=== PATIENT | female | born 1950 | race Caucasian/White ===

== ENCOUNTER 2018-10-31 07:51 | Emergency (ER) | payer OTHER, MEDICAID ==
[2018-10-31 07:59] VITALS: BP 149/83
[2018-10-31] MEDS ORDERED: predniSONE 20 MG TAB PO ONE (08:36)
--- NOTE | 2018-10-31 08:39 | EDPHY ---
H & P Stated Complaint: Swelling and redness to left pointer finger since yesterday. Time Seen by Provider: 10/31/18 08:26 HPI/ROS: CHIEF COMPLAINT: Insect bite HISTORY OF PRESENT ILLNESS: The patient is a 68-year-old female who states that she went to bed was and woke up Wednesday morning with 2 insect bites. 1 on her left arm and 1 on her left index finger. Since then they have been very itchy and swelling. She states that this is somewhat common for her and that she often gets insect bites and has local allergic reactions. In the past she has been is prescribed Vistaril but does not like how it makes her so sleepy. She has been using Benadryl cream with minimal improvement. She has been using ice. She is here requesting stronger but nonsedating anti- inflammatories. Severity: Moderate Modifying factors: None REVIEW OF SYSTEMS: Constitutional: denies: chills, fever, recent illness, recent injury EENTM: denies: blurred vision, double vision, nose congestion Respiratory: denies: cough, shortness of breath Cardiac: denies: chest pain, irregular heart rate, lightheadedness, palpitations Gastrointestinal/Abdominal: denies: abdominal pain, diarrhea, nausea, vomiting, blood streaked stools Genitourinary: denies: dysuria, frequency, hematuria, pain Musculoskeletal: denies: joint pain, muscle pain Skin: See HPI Neurological: denies: headache, numbness, paresthesia, tingling, dizziness, weakness Hematologic/Lymphatic: denies: blood clots, easy bleeding, easy bruising Immunologic/allergic: denies: HIV/AIDS, transplant 10 systems reviewed and negative except as noted EXAM: GENERAL: Well-appearing, well-nourished and in no acute distress. HEAD: Atraumatic, normocephalic. EYES: Pupils equal round and reactive to light, extraocular movements intact, sclera anicteric, conjunctiva are normal. ENT: TMs normal, nares patent, oropharynx clear without exudates. Moist mucous membranes. NECK: Normal range of motion, supple without lymphadenopathy or JVD. LUNGS: Breath sounds clear to auscultation bilaterally and equal. No wheezes rales or rhonchi. HEART: Regular rate and rhythm without murmurs, rubs or gallops. ABDOMEN: Soft, nontender, normoactive bowel sounds. No guarding, no rebound. No masses appreciated. BACK: No CVA tenderness, no spinal tenderness, step-offs or deformities EXTREMITIES: Normal range of motion, no pitting or edema. No clubbing or cyanosis. NEUROLOGICAL: Cranial nerves II through XII grossly intact. Normal speech, normal gait. 5/5 strength, normal movement in all extremities, normal sensation , normal reflexes PSYCH: Normal mood, normal affect. SKIN: Lesion to left upper arm with surrounding erythema and slight swelling. Another lesion to the left index finger proximal phalanx region with surrounding erythema. Both areas are faint. Both areas are slightly swollen. Not warm to the touch. No abscess or fluctuance. Source: Patient Exam Limitations: No limitations - Personal History Current Tetanus Diphtheria and Acellular Pertussis (TDAP): Unsure - Medical/Surgical History Hx Asthma: No Hx Chronic Respiratory Disease: No Hx Diabetes: No Hx Cardiac Disease: No Hx Renal Disease: No Hx Cirrhosis: No Hx Alcoholism: No Hx HIV/AIDS: No Hx Splenectomy or Spleen Trauma: No Other PMH: Denies - Family History Significant Family History: No pertinent family hx - Social History Smoking Status: Never smoked Alcohol Use: Sober Drug Use: None Constitutional: Initial Vital Signs Temperature (C) 36.5 C 10/31/18 07:55 Heart Rate 93 10/31/18 07:55 Respiratory Rate 16 10/31/18 07:55 Blood Pressure 149/83 H 10/31/18 07:55 O2 Sat (%) 98 10/31/18 07:55 O2 Delivery Mode Room Air Allergies/Adverse Reactions: latex Allergy (Unknown, Verified 07/26/13 18:35) Penicillins Allergy (Unknown, Verified 07/26/13 18:35) Home Medications: Medication Instructions Recorded predniSONE 60 mg PO DAILY #12 tab 10/31/18 Medical Decision Making ED Course/Re-evaluation: The patient has 2 areas that do appear to be insect bites with local inflammatory reaction. I was initially concerned for early cellulitis versus herpetic roberta in the patient's finger however she states that she has had similar bites in the past that every acted the same way and she does have a 2nd bite on her arm that appears more consistent with an insect bite and localized allergic reaction. She is simply here requesting anti-inflammatories that will not sedate her. We discussed the use of or [id number] nonsedating antihistamines. I will also give her a course of prednisone. We discussed the use of creams and ice etc. She has Vistaril if needed. She declines further workup or testing at the time. I recommended she return in 48 hr for recheck to evaluate for cellulitis. Differential Diagnosis: Partial list of the Differential diagnosis considered include but were not limited to; allergic reaction, insect bite, herpetic roberta, cellulitis and although unlikely based on the history and physical exam, I also considered abscess, fasciitis, ischemia. I discussed these differential diagnoses and the plan with the patient as well as the usual and expected course. The patient understands that the diagnosis is provisional and that in medicine we are not always correct and that further workup is often warranted. Usual and customary warnings were given. All of the patient's questions were answered. The patient was instructed to return to the emergency department should the symptoms at all worsen or return, otherwise to followup with the physician as we discussed. - Data Points Medications Given: Discontinued Medications Prednisone (Prednisone) 60 mg PO EDNOW ONE Stop: 10/31/18 08:37 Last Admin: 10/31/18 08:40 Dose: 60 mg Departure - Departure Disposition: Home, Routine, Self-Care Clinical Impression: Insect bite Qualifiers: Encounter type: initial encounter Site of insect bite: unspecified site Qualified Code(s): W57.XXXA - Bitten or stung by nonvenomous insect and other nonvenomous arthropods, initial encounter Allergic reaction Qualifiers: Encounter type: initial encounter Qualified Code(s): T78.40XA - Allergy, unspecified, initial encounter Condition: Fair Instructions: Insect Bite or Sting (ED), General Allergic Reaction (ED) Additional Instructions: Take Zyrtec or Edie antihistamine in addition to the prednisone. Referrals: Anisha Noland MD [Primary Care Provider] - As per Instructions Prescriptions: predniSONE 60 mg PO DAILY #12 tab
== END 2018-10-31 08:57 | disposition home or self-care (01) ==
DX: T78.40XA Allergy, unspecified, initial encounter (principal); W57.XXXA Bitten or stung by nonvenomous insect and other nonvenomous arthropods, initial encounter; Y92.9 Unspecified place or not applicable; Y93.9 Activity, unspecified; Y99.9 Unspecified external cause status
CPT/HCPCS: 99283; J7512

== ENCOUNTER → 2018-11-29 | Outpatient (CLI) | payer OTHER, MEDICAID | LOC: FIMAGING 12:21 | PROVIDERS: ATTEND Internal Medicine | DX: E04.1 Nontoxic single thyroid nodule (principal) ==

== ENCOUNTER → 2019-03-07 | Outpatient (CLI) | payer OTHER, MEDICAID | LOC: EMCIMAGING 12:50 | PROVIDERS: ATTEND Internal Medicine | DX: E04.1 Nontoxic single thyroid nodule (principal); E88.81 Metabolic syndrome and other insulin resistance; K21.9 Gastro-esophageal reflux disease without esophagitis; K58.9 Irritable bowel syndrome, unspecified; R53.83 Other fatigue | CPT/HCPCS: 76536-PN ==